=== PATIENT | male | born 1950 | race Caucasian/White ===

== ENCOUNTER 2018-03-17 04:25 | Emergency (ER) | payer MEDICARE, OTHER ==
[~2018-03-17] VITALS: Ht 172.7 cm; Wt 100.7 kg
[~2018-03-17 04:25] MED LIST: ASPIRIN EC81 M1; ASPIRIN NON IR325 MG; CHLORDIAZEPOXID10 MG; CHLORDIAZEPOXID10 MG PO; CIPRO250 M1 PO; CIPROFLOXACIN500 M1 PO; COUMADIN 4 MG TA4 M1 PO; EFFEXOR XR75 MG; ENOXAPARIN100 MG/11 SUBQ; FISH OIL 1,001000 M2 PO; FLAGYL500 MG PO; LIBRIUM; NORCO 5-325 TA1 EACH PO; PHENAZOPYRIDIN200 M2 PO; PHENERGAN 25 MG25 M1 PO; VENLAFAXIN75 MG/1 T2; VENLAFAXINE H37.5 M2 PO; ZOFRAN4 MG PO
[2018-03-17] MEDS ORDERED: COUMADIN 3 MG TA3 M1 (04:51)
[2018-03-17] MEDS ORDERED: COUMADIN 1MG TAB1 M1 (04:51)
[2018-03-17] MEDS ORDERED: [UNRECOGNIZED DRUG - CODE] (04:52)
[2018-03-17 04:58] LABS: URINE BILIRUBIN NEGATIVE (Negative); URINE BLOOD 1+ (Negative); URINE CLARITY CLOUDY; URINE COLOR YELLOW; URINE GLUCOSE-RANDOM NEGATIVE (Negative); URINE KETONES NEGATIVE (Negative); URINE PROTEIN NEGATIVE (Negative); URINE SPECIFIC GRAVITY <= 1.005 (1.005-1.030); URINE UROBILINOGEN 0.2 E.U./dl (0.2-1.0)
[2018-03-17 04:59] LABS: URINE LEUKOCYTES-REFLEX 3+ (Negative); URINE NITRITE-REFLEX POSITIVE (Negative)
[2018-03-17] MEDS ORDERED: KEFLEX500 M1 PO (05:04)
[2018-03-17] MEDS ORDERED: PHENAZOPYRIDIN200 M2 PO (05:04)
[2018-03-17 05:13] LABS: HEMATOCRIT 44.6 % (42.0-52.0); MCH 29.6 pg (26.0-34.0); MCHC 33.6 g/dL (28.0-37.0); MCV 88.1 fL (80.0-100.0); RBC 5.06 mil/uL (4.50-6.00); RDW-CV 14.1 % (10.5-14.5); WBC 6.5 thou/uL (4.0-11.0)
[2018-03-17 05:21] LABS: INR 1.7; PROTIME 16.6 Seconds (9.20-11.50)
[2018-03-17 05:24] LABS: CALCIUM 9.1 mg/dL (8.5-10.1); CREATININE 1.4 mg/dL (0.6-1.3); POTASSIUM 3.8 mmol/L (3.5-5.1)
[2018-03-17 05:42] LABS: BACTERIA-REFLEX >30 Many /HPF (None Seen); CASTS None Seen /LPF (None Seen); CRYSTALS None Seen /LPF (None Seen); SQUAMOUS 0-3 Few /LPF (0-3); URINE WBC-REFLEX >25 Many /HPF (0-5)
[2018-03-17 05:44] VITALS: BP 115/88
== END 2018-03-17 05:44 | disposition home or self-care (01) ==
LOC: M.ERS 04:25
PROVIDERS: Emergency Medicine Emergency Medical Services
DX: N39.0 Urinary tract infection, site not specified (principal); F41.9 Anxiety disorder, unspecified